=== PATIENT | female | born 1985 | race Caucasian/White ===

== ENCOUNTER 2017-06-27 09:20 | Emergency (ER) | payer OTHER ==
--- NOTE | 2017-06-27 09:50 | ED ---
Abdominal Pain HPI - General Chief Complaint: Abdominal Pain Stated Complaint: Rib/Chest Pain Time Seen by Provider: 06/27/17 09:34 Source: patient, RN notes reviewed Mode of arrival: ambulatory Limitations: no limitations - History of Present Illness Initial Comments: This a 32-year-old female presents emergency Department chief complaint right upper quadrant abdominal pain. Patient states she's had pain essentially for 2 years but states recently has worsened. She states she was at [facility] twice for evaluation states that they told her something wrong with her liver. She follow-up with her primary care physician who set her up with Dr. Rae. She states she does not know why she has been referred to a neurologist for liver issues. Patient states that she occasionally has nausea no vomiting no diarrhea no constipation no history of IV drug use no history of hepatitis. Patient states she wakes up morning feels extremity puncture her right lower ribs and right upper abdomen region. Patient states she is not sure she's ever had an ultrasound or not. - Related Data Home Medications Medication Instructions Recorded Confirmed ALPRAZolam [ALPRAZolam] 0.25 mg PO TID PRN 03/02/16 06/27/17 Previous Rx's Medication Instructions Recorded traMADol HCl [Ultram] 50 mg PO Q6H PRN #20 tab 06/27/17 Allergies Allergy/AdvReac Type Severity Reaction Status Date / Time No Known Allergies Allergy Verified 06/27/17 09:48 Review of Systems ROS Statement: Those systems with pertinent positive or pertinent negative responses have been documented in the HPI. ROS Other: All systems not noted in ROS Statement are negative. Past Medical History Past Medical History: No Reported History History of Any Multi-Drug Resistant Organisms: None Reported Past Surgical History: No Surgical Hx Reported Past Psychological History: Anxiety Smoking Status: Current every day smoker Past Alcohol Use History: Occasional Past Drug Use History: None Reported General Exam Limitations: no limitations General appearance: alert, in no apparent distress Head exam: Present: atraumatic, normocephalic, normal inspection Respiratory exam: Present: normal lung sounds bilaterally. Absent: respiratory distress, wheezes, rales, rhonchi, stridor Cardiovascular Exam: Present: regular rate, normal rhythm, normal heart sounds. Absent: systolic murmur, diastolic murmur, rubs, gallop, clicks GI/Abdominal exam: Present: soft, tenderness (Mild right upper quadrant tenderness), normal bowel sounds. Absent: distended, guarding, rebound, rigid Back exam: Absent: CVA tenderness (R), CVA tenderness (L) Skin exam: Present: warm, dry, intact, normal color. Absent: rash Course Vital Signs 06/27/17 09:30 Temperature 99.3 F Pulse Rate 88 Respiratory 18 Rate Blood Pressure 117/61 O2 Sat by Pulse 98 Oximetry Medical Decision Making - Medical Decision Making 32-year-old female presented emergency from for reported abdominal pain. Patient denies ongoing issues. Patient has mild thickening of the wall is no inflammatory changes. Recommend to have a HIDA scan outpatient patient will be referred to on-call surgeon Dr. Sepulveda. Return parameters were discussed. - Lab Data Result diagrams: 06/27/17 10:30 06/27/17 10:30 Lab Results 06/27/17 06/27/17 06/27/17 Range/Units 10:15 10:15 10:15 WBC (3.8-10.6) k/uL RBC (3.80-5.40) m/uL Hgb (11.4-16.0) gm/dL Hct (34.0-46.0) % MCV (80.0-100.0) fL MCH (25.0-35.0) pg MCHC (31.0-37.0) g/dL RDW (11.5-15.5) % Plt Count (150-450) k/uL Neutrophils % % Lymphocytes % % Monocytes % % Eosinophils % % Basophils % % Neutrophils # (1.3-7.7) k/uL Lymphocytes # (1.0-4.8) k/uL Monocytes # (0-1.0) k/uL Eosinophils # (0-0.7) k/uL Basophils # (0-0.2) k/uL PT (9.0-12.0) sec INR (<1.2) APTT (22.0-30.0) sec Sodium (137-145) mmol/L Potassium (3.5-5.1) mmol/L Chloride (98-107) mmol/L Carbon Dioxide (22-30) mmol/L Anion Gap mmol/L BUN (7-17) mg/dL Creatinine (0.52-1.04) mg/dL Est GFR (MDRD) Af Amer (>60 ml/min/1.73 sqM) Est GFR (MDRD) Non-Af (>60 ml/min/1.73 sqM) Glucose (74-99) mg/dL Calcium (8.4-10.2) mg/dL Total Bilirubin (0.2-1.3) mg/dL AST (14-36) U/L ALT (9-52) U/L Alkaline Phosphatase (38-126) U/L Total Protein (6.3-8.2) g/dL Albumin (3.5-5.0) g/dL Amylase (30-110) U/L Lipase (23-300) U/L Urine Color Yellow Urine Appearance Clear (Clear) Urine pH 6.5 (5.0-8.0) Ur Specific Boyce 1.015 (1.001-1.035) Urine Protein Negative (Negative) Urine Glucose (UA) Negative (Negative) Urine Ketones Negative (Negative) Urine Blood Negative (Negative) Urine Nitrite Negative (Negative) Urine Bilirubin Negative (Negative) Urine Urobilinogen <2.0 (<2.0) mg/dL Ur Leukocyte Esterase Negative (Negative) Urine HCG, Qual Not Detected (Not Detectd) Urine Opiates Screen Not Detected (NotDetected) Ur Oxycodone Screen Not Detected (NotDetected) Urine Methadone Screen Not Detected (NotDetected) Ur Propoxyphene Screen Not Detected (NotDetected) Ur Barbiturates Screen Not Detected (NotDetected) U Tricyclic Antidepress Not Detected (NotDetected) Ur Phencyclidine Scrn Not Detected (NotDetected) Ur Amphetamines Screen Not Detected (NotDetected) U Methamphetamines Scrn Not Detected (NotDetected) U Benzodiazepines Scrn Detected H (NotDetected) Urine Cocaine Screen Not Detected (NotDetected) U Marijuana (THC) Screen Not Detected (NotDetected) Heterophile Antibody (Negative) 06/27/17 06/27/17 06/27/17 Range/Units 10:30 10:30 10:30 WBC 3.9 (3.8-10.6) k/uL RBC 4.04 (3.80-5.40) m/uL Hgb 11.5 (11.4-16.0) gm/dL Hct 35.8 (34.0-46.0) % MCV 88.8 (80.0-100.0) fL MCH 28.6 (25.0-35.0) pg MCHC 32.2 (31.0-37.0) g/dL RDW 15.9 H (11.5-15.5) % Plt Count 144 L (150-450) k/uL Neutrophils % 56 % Lymphocytes % 30 % Monocytes % 10 % Eosinophils % 2 % Basophils % 1 % Neutrophils # 2.2 (1.3-7.7) k/uL Lymphocytes # 1.2 (1.0-4.8) k/uL Monocytes # 0.4 (0-1.0) k/uL Eosinophils # 0.1 (0-0.7) k/uL Basophils # 0.0 (0-0.2) k/uL PT (9.0-12.0) sec INR (<1.2) APTT (22.0-30.0) sec Sodium 140 (137-145) mmol/L Potassium 4.2 (3.5-5.1) mmol/L Chloride 107 (98-107) mmol/L Carbon Dioxide 25 (22-30) mmol/L Anion Gap 8 mmol/L BUN 11 (7-17) mg/dL Creatinine 0.64 (0.52-1.04) mg/dL Est GFR (MDRD) Af Amer >60 (>60 ml/min/1.73 sqM) Est GFR (MDRD) Non-Af >60 (>60 ml/min/1.73 sqM) Glucose 97 (74-99) mg/dL Calcium 9.4 (8.4-10.2) mg/dL Total Bilirubin 0.4 (0.2-1.3) mg/dL AST 101 H (14-36) U/L ALT 132 H (9-52) U/L Alkaline Phosphatase 49 (38-126) U/L Total Protein 7.1 (6.3-8.2) g/dL Albumin 4.1 (3.5-5.0) g/dL Amylase 110 (30-110) U/L Lipase 157 (23-300) U/L Urine Color Urine Appearance (Clear) Urine pH (5.0-8.0) Ur Specific Boyce (1.001-1.035) Urine Protein (Negative) Urine Glucose (UA) (Negative) Urine Ketones (Negative) Urine Blood (Negative) Urine Nitrite (Negative) Urine Bilirubin (Negative) Urine Urobilinogen (<2.0) mg/dL Ur Leukocyte Esterase (Negative) Urine HCG, Qual (Not Detectd) Urine Opiates Screen (NotDetected) Ur Oxycodone Screen (NotDetected) Urine Methadone Screen (NotDetected) Ur Propoxyphene Screen (NotDetected) Ur Barbiturates Screen (NotDetected) U Tricyclic Antidepress (NotDetected) Ur Phencyclidine Scrn (NotDetected) Ur Amphetamines Screen (NotDetected) U Methamphetamines Scrn (NotDetected) U Benzodiazepines Scrn (NotDetected) Urine Cocaine Screen (NotDetected) U Marijuana (THC) Screen (NotDetected) Heterophile Antibody Negative (Negative) 06/27/17 Range/Units 10:30 WBC (3.8-10.6) k/uL RBC (3.80-5.40) m/uL Hgb (11.4-16.0) gm/dL Hct (34.0-46.0) % MCV (80.0-100.0) fL MCH (25.0-35.0) pg MCHC (31.0-37.0) g/dL RDW (11.5-15.5) % Plt Count (150-450) k/uL Neutrophils % % Lymphocytes % % Monocytes % % Eosinophils % % Basophils % % Neutrophils # (1.3-7.7) k/uL Lymphocytes # (1.0-4.8) k/uL Monocytes # (0-1.0) k/uL Eosinophils # (0-0.7) k/uL Basophils # (0-0.2) k/uL PT 10.6 (9.0-12.0) sec INR 1.1 (<1.2) APTT 24.9 (22.0-30.0) sec Sodium (137-145) mmol/L Potassium (3.5-5.1) mmol/L Chloride (98-107) mmol/L Carbon Dioxide (22-30) mmol/L Anion Gap mmol/L BUN (7-17) mg/dL Creatinine (0.52-1.04) mg/dL Est GFR (MDRD) Af Amer (>60 ml/min/1.73 sqM) Est GFR (MDRD) Non-Af (>60 ml/min/1.73 sqM) Glucose (74-99) mg/dL Calcium (8.4-10.2) mg/dL Total Bilirubin (0.2-1.3) mg/dL AST (14-36) U/L ALT (9-52) U/L Alkaline Phosphatase (38-126) U/L Total Protein (6.3-8.2) g/dL Albumin (3.5-5.0) g/dL Amylase (30-110) U/L Lipase (23-300) U/L Urine Color Urine Appearance (Clear) Urine pH (5.0-8.0) Ur Specific Boyce (1.001-1.035) Urine Protein (Negative) Urine Glucose (UA) (Negative) Urine Ketones (Negative) Urine Blood (Negative) Urine Nitrite (Negative) Urine Bilirubin (Negative) Urine Urobilinogen (<2.0) mg/dL Ur Leukocyte Esterase (Negative) Urine HCG, Qual (Not Detectd) Urine Opiates Screen (NotDetected) Ur Oxycodone Screen (NotDetected) Urine Methadone Screen (NotDetected) Ur Propoxyphene Screen (NotDetected) Ur Barbiturates Screen (NotDetected) U Tricyclic Antidepress (NotDetected) Ur Phencyclidine Scrn (NotDetected) Ur Amphetamines Screen (NotDetected) U Methamphetamines Scrn (NotDetected) U Benzodiazepines Scrn (NotDetected) Urine Cocaine Screen (NotDetected) U Marijuana (THC) Screen (NotDetected) Heterophile Antibody (Negative) Disposition Clinical Impression: Transaminitis, Right upper quadrant abdominal pain Disposition: HOME SELF-CARE Condition: Stable Instructions: Abdominal Pain (ED) Additional Instructions: Please return to the Emergency Department if symptoms worsen or any other concerns. Prescriptions: traMADol HCl [Ultram] 50 mg PO Q6H PRN #20 tab PRN Reason: Pain Referrals: Lonnie Fox Jr, DO [Primary Care Provider] - 1-2 days Adriana Sepulveda MD [STAFF PHYSICIAN] - 1-2 days Time of Disposition: 11:37
[2017-06-27 10:43] LABS: Basophils % (A) 1 %; CH 29.2; CHCM 33.1; Eosinophils # (A) 0.1 k/uL (0-0.7); Eosinophils % (A) 2 %; HCT 35.8 % (34.0-46.0); HDW 2.81; HGB 11.5 gm/dL (11.4-16.0); Luc # (Auto) 0.09; Luc % (Auto) 2; Lymphocytes # (A) 1.2 k/uL (1.0-4.8); Lymphocytes % (A) 30 %; MCH 28.6 pg (25.0-35.0); MCHC 32.2 g/dL (31.0-37.0); MCV 88.8 fL (80.0-100.0); Mean Platelet Volume 7.4; Monocytes # (A) 0.4 k/uL (0-1.0); Monocytes % (A) 10 %; Neutrophils # (A) 2.2 k/uL (1.3-7.7); Neutrophils % (A) 56 %; RBC 4.04 m/uL (3.80-5.40); RDW 15.9 % (11.5-15.5); WBC 3.9 k/uL (3.8-10.6); WBC (Perox) 4.01
[2017-06-27 10:46] LABS: Appearance,Urine Clear (Clear); Bilirubin,Urine Negative (Negative); Glucose,Urine (UA) Negative (Negative); Ketones,Urine Negative (Negative); Leukocyte Esterase,Urine Negative (Negative); Nitrite,Urine Negative (Negative); PH, Urine 6.5 (5.0-8.0); Protein,Urine Negative (Negative); Specific Gravity,Urine 1.015 (1.001-1.035); UA Billing (MACRO vs. MICRO) CHEM; Urobilinogen,Urine <2.0 mg/dL (<2.0)
[2017-06-27 10:55] LABS: INR 1.1 (<1.2); Partial Thromboplastin Time 24.9 sec (22.0-30.0); Prothrombin Time 10.6 sec (9.0-12.0)
[2017-06-27 11:06] LABS: ALT 132 U/L (9-52); AST 101 U/L (14-36); Alkaline Phosphatase 49 U/L (38-126); Amylase 110 U/L (30-110); Anion Gap 8 mmol/L; Blood Urea Nitrogen 11 mg/dL (7-17); Calcium 9.4 mg/dL (8.4-10.2); Carbon Dioxide 25 mmol/L (22-30); Chloride 107 mmol/L (98-107); Glucose 97 mg/dL (74-99); Non-African American GFR(MDRD) >60 (>60 ml/min/1.73 sqM); Potassium 4.2 mmol/L (3.5-5.1); Sodium 140 mmol/L (137-145); Total Bilirubin 0.4 mg/dL (0.2-1.3); Total Protein 7.1 g/dL (6.3-8.2)
--- NOTE | 2017-06-27 11:30 | US ---
EXAMINATION TYPE: US abdomen limited DATE OF EXAM: 06/27/2017 COMPARISON: NONE CLINICAL HISTORY: Pain - RUQ. EXAM MEASUREMENTS: Liver Length: 15.7 cm Gallbladder Wall: 0.4 cm CBD: 0.5 cm Right Kidney: 10.3 x 4.7 x 4.5 cm Pancreas: Obscured by bowel gas Liver: portions visualized wnl, somewhat limited due to patients inability to take in a deep breath Gallbladder: thickened wall Evidence for sonographic Lovett's sign: patient very tender at this area CBD: wnl Right Kidney: Inferior pole obscured by overlying bowel gas IMPRESSION: 1. Limited exam demonstrates mild gallbladder wall thickening with no definite gallstones. Consider f ollow-up HIDA scan to assess for gallbladder function and acalculus cholecystitis.
[2017-06-27] MEDS ORDERED: KETOROLAC 30 MG/ML 1 ML VIAL IVP STA (11:36)
[2017-06-27 11:48] VITALS: BP 103/57; PULSE 67; RESP 16; TEMP 97.2
== END 2017-06-27 11:56 | disposition home or self-care (01) ==
LOC: EC 09:20
DX: R74.0 Nonspecific elevation of levels of transaminase and lactic acid dehydrogenase [LDH] (principal); R10.11 Right upper quadrant pain; R11.0 Nausea; F17.200 Nicotine dependence, unspecified, uncomplicated
CPT/HCPCS: 99284 ×3; 96374 ×2; 36415; 93005; 80053; 80074; 82150; 83690; 85025; 85610; 85730; 86308; 81003; 81025; 80306; 76705; J1885

== ENCOUNTER 2017-06-27 15:57 | Emergency (ER) | payer OTHER ==
[2017-06-27 16:03] VITALS: TEMP 97.4
[2017-06-27] MEDS ORDERED: HYDROcodone/APAP 5-325MG 1 EACH TAB PO STA (16:28)
--- NOTE | 2017-06-27 16:33 | ED ---
General Adult HPI - General Chief complaint: Chest Pain Stated complaint: CHEST PAIN FOLLOWING MEDICATION Time Seen by Provider: 06/27/17 16:22 Source: patient, RN notes reviewed Mode of arrival: wheelchair Limitations: no limitations - History of Present Illness Initial comments: This a 32-year-old female presents emergency Department chief complaint of medication reaction. Patient was seen here earlier today diagnosed with gallbladder. Ultrasound showed thickening of the gallbladder wall. Patient was given mobic she states that she cannot take tramadol were, according. Patient states that she cannot scheduled appointment with his surgeon as directed. Patient states she talked with primary felt that she still need to see a neurologist. Patient denies any nausea vomiting diarrhea constipation. She states that medication upset her stomach and she's having worsening of her symptoms. She denies any anterior upper chest pain. She states in her abdomen. - Related Data Home Medications Medication Instructions Recorded Confirmed ALPRAZolam [ALPRAZolam] 0.25 mg PO TID PRN 03/02/16 06/27/17 Previous Rx's Medication Instructions Recorded Hydrocodone/Acetaminophen [[place] 1 tab PO Q6HR PRN #15 tab 06/27/17 5-325] Meloxicam [Mobic] 7.5 mg PO DAILY #14 tab 06/27/17 Omeprazole 40 mg PO DAILY #14 capsule. 06/27/17 Ondansetron Odt [Zofran Odt] 4 mg PO Q8HR PRN #10 tab 06/27/17 traMADol HCl [Ultram] 50 mg PO Q6H PRN #20 tab 06/27/17 Allergies Allergy/AdvReac Type Severity Reaction Status Date / Time No Known Allergies Allergy Verified 06/27/17 15:59 Review of Systems ROS Statement: Those systems with pertinent positive or pertinent negative responses have been documented in the HPI. ROS Other: All systems not noted in ROS Statement are negative. Past Medical History Past Medical History: No Reported History History of Any Multi-Drug Resistant Organisms: None Reported Past Surgical History: Section Past Psychological History: Anxiety Smoking Status: Former smoker Past Alcohol Use History: Occasional Past Drug Use History: None Reported General Exam Limitations: no limitations General appearance: alert, in no apparent distress Neck exam: Present: normal inspection, full ROM. Absent: tenderness, meningismus, lymphadenopathy Respiratory exam: Present: normal lung sounds bilaterally. Absent: respiratory distress, wheezes, rales, rhonchi, stridor Cardiovascular Exam: Present: regular rate, normal rhythm, normal heart sounds. Absent: systolic murmur, diastolic murmur, rubs, gallop, clicks GI/Abdominal exam: Present: soft, tenderness (Tenderness in epigastric and right upper quadrant), normal bowel sounds. Absent: distended, guarding, rebound, rigid Back exam: Absent: CVA tenderness (R), CVA tenderness (L) Psychiatric exam: Present: normal affect, normal mood Course Vital Signs 06/27/17 16:00 Temperature 97.4 F L Pulse Rate 70 Respiratory 18 Rate Blood Pressure 104/59 O2 Sat by Pulse 99 Oximetry EKG Findings - EKG Comments: EKG Findings:: EKG performed at 16:09 normal sinus rhythm with rate 74 WA 144 QRS 84 QT/QTc 412/457 Medical Decision Making - Medical Decision Making 32-year-old female presented for medication reaction. Patient felt worse after taking molelike. Patient will be advised to discontinue medication, we given the medication in follow-up with surgery. Disposition Clinical Impression: Right upper quadrant abdominal pain, Medication reaction Disposition: HOME SELF-CARE Condition: Stable Instructions: Abdominal Pain (ED) Additional Instructions: Please return to the Emergency Department if symptoms worsen or any other concerns. Prescriptions: Hydrocodone/Acetaminophen [[place] 5-325] 1 tab PO Q6HR PRN #15 tab PRN Reason: Pain Omeprazole 40 mg PO DAILY #14 capsule. Ondansetron Odt [Zofran Odt] 4 mg PO Q8HR PRN #10 tab PRN Reason: Nausea Referrals: Lonnie Fox Jr, [Primary Care Provider] - 1-2 days Time of Disposition: 16:33
[2017-06-27 16:55] VITALS: BP 108/57; PULSE 83; RESP 16
== END 2017-06-27 16:55 | disposition home or self-care (01) ==
LOC: EC 15:57
DX: R10.11 Right upper quadrant pain (principal); T39.395A Adverse effect of other nonsteroidal anti-inflammatory drugs [NSAID], initial encounter; Z87.891 Personal history of nicotine dependence
CPT/HCPCS: 93005; 99284

== ENCOUNTER → 2017-09-19 | Outpatient (CLI) | payer OTHER ==
--- NOTE | 2017-09-19 14:03 | MR ---
EXAMINATION TYPE: [facility] DATE OF EXAM: 09/19/2017 COMPARISON: NONE HISTORY: Headache / Cervicalgia TECHNIQUE: Multiplanar, multisequence images of the brain and brainstem is performed without and with IV contras t, utilizing 7 mL intravenous Gadavist . FINDINGS: Brain: Diffusion weighted images demonstrate no evidence of a recent infarct or other diffusion abnor mality. There is no extra-axial fluid collection or significant white matter signal abnormality. Th e ventricular system and cisternal spaces are normal in size and appearance. The brain volume is age appropriate. Midline structures demonstrate normal morphology. The craniocervical junction appears within normal limits. Incidental note is made of a nonenhancing 8 mm pineal gland cyst. Post contrast images demon strate no abnormal enhancement. The dural venous sinuses appear patent. The visualized sinuses are cl ear and the globes are intact. Cervical spine: There is a slight reversal usual cervical lordosis from C2 through C6. Vertebral bodi es maintain normal alignment and vertebral body height. Bone marrow signal is within normal limits. V isualized posterior fossa is unremarkable. Cervical cord signal is also within normal limits. Multile sheri disc desiccation is present. C2-C3: No significant disc pathology, neural foraminal stenosis or spinal canal stenosis. C3-C4: There is a small left paracentral disc herniation minimally impressing upon the ventral subara chnoid space and extending into the lateral recess creating mild spinal canal stenosis left laterally . Neural foramen are patent. C4-C5: There is a left foraminal disc herniation mildly narrowing the left neural foramen. Spinal can al and right neuroforamen are patent. C5-C6: There is a central subligamentous small disc herniation mildly narrowing the spinal canal. Simon ral foramen are patent. C6-C7: No significant disc pathology, neural foraminal stenosis or spinal canal stenosis. C7-T1: No significant disc pathology, neural foraminal stenosis or spinal canal stenosis. IMPRESSION: 1. Small left paracentral disc herniation at C3-C4 creating mild spinal canal stenosis left laterally . Neural foramen are patent. 2. Small left foraminal disc herniation mildly narrowing the left neuroforamen at C4-C5. 3. Central subligamentous small disc herniation mildly narrowing the spinal canal at C5-C6. Neural fo ramen are patent. 4. No acute intracranial process. No abnormal intracranial enhancement. 8mm pineal gland cyst is inci dentally noted.
== END | disposition home or self-care (01) ==
LOC: RADMRIMAIN 10:31
PROVIDERS: ATTEND Psychiatry & Neurology Neurology
DX: M48.02 Spinal stenosis, cervical region (principal); M50.21 Other cervical disc displacement, high cervical region; R51 Headache
CPT/HCPCS: 70553; 72141; A9581

== ENCOUNTER 2017-10-10 17:23 | Emergency (ER) | payer OTHER ==
[2017-10-10 17:29] VITALS: RESP 18; TEMP 98.9
[2017-10-10] MEDS ORDERED: SODIUM CHLORIDE 0.9% 1,000 ML IV STA (17:56)
[2017-10-10 18:26] LABS: Basophils % (A) 0 %; Eosinophils % (A) 1 %; HCT 34.6 % (34.0-46.0); HGB 11.6 gm/dL (11.4-16.0); Lymphocytes # (A) 1.3 k/uL (1.0-4.8); Lymphocytes % (A) 37 %; MCH 27.9 pg (25.0-35.0); MCHC 33.5 g/dL (31.0-37.0); MCV 83.3 fL (80.0-100.0); Mean Platelet Volume 8.3; Monocytes # (A) 0.2 k/uL (0-1.0); Monocytes % (A) 7 %; Neutrophils # (A) 1.9 k/uL (1.3-7.7); Neutrophils % (A) 52 %; Platelet Count 162 k/uL (150-450); RBC 4.16 m/uL (3.80-5.40); RDW 14.9 % (11.5-15.5); WBC 3.6 k/uL (3.8-10.6)
[2017-10-10 18:28] LABS: Appearance,Urine Clear (Clear); Bilirubin,Urine Negative (Negative); Blood,Urine Negative (Negative); Color,Urine Light Yellow; Glucose,Urine (UA) Negative (Negative); Ketones,Urine Negative (Negative); Leukocyte Esterase,Urine Negative (Negative); Nitrite,Urine Negative (Negative); PH, Urine 7.5 (5.0-8.0); Protein,Urine Negative (Negative); Specific Gravity,Urine 1.005 (1.001-1.035); Urobilinogen,Urine <2.0 mg/dL (<2.0)
[2017-10-10 18:47] LABS: ALT 17 U/L (9-52); AST 20 U/L (14-36); Alkaline Phosphatase 43 U/L (38-126); Anion Gap 9 mmol/L; Blood Urea Nitrogen 10 mg/dL (7-17); Calcium 9.4 mg/dL (8.4-10.2); Carbon Dioxide 26 mmol/L (22-30); Chloride 108 mmol/L (98-107); Glucose 110 mg/dL (74-99); Sodium 143 mmol/L (137-145); Total Bilirubin 0.3 mg/dL (0.2-1.3); Total Protein 6.8 g/dL (6.3-8.2)
--- NOTE | 2017-10-10 19:02 | XR ---
EXAMINATION TYPE: XR chest 2V DATE OF EXAM: 10/10/2017 COMPARISON: 07/05/2017 HISTORY: Weakness TECHNIQUE: Frontal and lateral views of the chest are obtained. FINDINGS: Heart and mediastinum are normal. Lungs are clear. Diaphragm is normal. Bony thorax is int act. IMPRESSION: Normal chest. No change.
[2017-10-10] MEDS ORDERED: POTASSIUM CHLORIDE ER 10 MEQ TAB.ER.PRT PO STA (19:14)
--- NOTE | 2017-10-10 19:31 | ED ---
General Adult HPI - General Chief complaint: Shortness of Breath Stated complaint: Weak/shaking Time Seen by Provider: 10/10/17 17:44 Source: patient Mode of arrival: ambulatory Limitations: no limitations - History of Present Illness Initial comments: 32-year-old female presents to the emergency department for chief complaint of shortness of shakiness. Patient states she was given an antibiotic for a cough 2 weeks ago and has felt shaky since then. Patient did have a cough at that time but states her cough is getting better. She states she still has some shortness of breath. Patient does appear anxious in the room but denies generalized anxiety. Patient denies nausea, vomiting, or diarrhea. Patient denies chest pain. Patient states she has felt weak but has not lost consciousness or fallen. Patient has been able to go to work the past 2 weeks. Patient has an appointment with a primary care physician in 2 days, Dr. Fox. - Related Data Home Medications Medication Instructions Recorded Confirmed ALPRAZolam [ALPRAZolam] 0.25 mg PO TID PRN 03/02/16 10/10/17 Dextroamphetamine/Amphetamine 30 mg PO DAILY 10/10/17 10/10/17 [Adderall] Previous Rx's Medication Instructions Recorded Potassium Chloride ER [K-Dur 10] 10 meq PO DAILY #5 tab 10/10/17 Allergies Allergy/AdvReac Type Severity Reaction Status Date / Time No Known Allergies Allergy Verified 10/10/17 17:53 Review of Systems ROS Statement: Those systems with pertinent positive or pertinent negative responses have been documented in the HPI. ROS Other: All systems not noted in ROS Statement are negative. Past Medical History Past Medical History: No Reported History History of Any Multi-Drug Resistant Organisms: None Reported Past Surgical History: Section Past Psychological History: Anxiety Smoking Status: Former smoker Past Alcohol Use History: Occasional Past Drug Use History: None Reported General Exam Limitations: no limitations Head exam: Present: atraumatic, normocephalic, normal inspection Eye exam: Present: normal appearance, PERRL, EOMI. Absent: scleral icterus, conjunctival injection, periorbital swelling ENT exam: Present: normal exam, mucous membranes moist Neck exam: Present: normal inspection. Absent: tenderness, meningismus, lymphadenopathy Respiratory exam: Present: normal lung sounds bilaterally. Absent: respiratory distress, wheezes, rales, rhonchi, stridor Cardiovascular Exam: Present: regular rate, normal rhythm, normal heart sounds. Absent: systolic murmur, diastolic murmur, rubs, gallop, clicks GI/Abdominal exam: Present: soft, normal bowel sounds. Absent: distended, tenderness, guarding, rebound, rigid Extremities exam: Present: normal inspection, full ROM, normal capillary refill. Absent: tenderness, pedal edema, joint swelling, calf tenderness Neurological exam: Present: alert, oriented X3, CN II-XII intact Psychiatric exam: Present: anxious Course Vital Signs 10/10/17 10/10/17 17:26 17:29 Temperature 98.9 F Pulse Rate 73 85 Respiratory 18 18 Rate Blood Pressure 108/71 119/67 O2 Sat by Pulse 100 96 Oximetry Medical Decision Making - Medical Decision Making 32-year-old female presents to the emergency department for shakiness. Patient is on antibiotic for a cough which is improving. Patient denies any congestion. Patient states she is also weak but has not fallen or lost consciousness. Patient has been able to maintain going to work for the past 2 weeks without problem. Patient denies any urinary symptoms, nausea, vomiting, abdominal pain, or chest pain. Patient was given a liter of IV fluids. I ordered an hCG and patient is negative for . Patient's CBC and CMP came back within normal limits except for potassium which was 3.0. She was treated with 20 of KDur and will continue with 10 KDur until she sees her primary care provider in 2 days. Patient does have feelings of shortness of breath. She is satting at 96-100% on room air. Chest x-ray shows no acute abnormalities. Patient will continue taking the Kdur until following up with primary care provider in 2 days at her scheduled appointment. If she notices worsening of shortness of breath or loses consciousness patient will return to the emergency department. - Lab Data Result diagrams: 10/10/17 18:10 10/10/17 18:10 Lab Results 10/10/17 10/10/17 10/10/17 Range/Units 18:10 18:10 18:10 WBC 3.6 L (3.8-10.6) k/uL RBC 4.16 (3.80-5.40) m/uL Hgb 11.6 (11.4-16.0) gm/dL Hct 34.6 (34.0-46.0) % MCV 83.3 (80.0-100.0) fL MCH 27.9 (25.0-35.0) pg MCHC 33.5 (31.0-37.0) g/dL RDW 14.9 (11.5-15.5) % Plt Count 162 (150-450) k/uL Neutrophils % 52 % Lymphocytes % 37 % Monocytes % 7 % Eosinophils % 1 % Basophils % 0 % Neutrophils # 1.9 (1.3-7.7) k/uL Lymphocytes # 1.3 (1.0-4.8) k/uL Monocytes # 0.2 (0-1.0) k/uL Eosinophils # 0.0 (0-0.7) k/uL Basophils # 0.0 (0-0.2) k/uL Sodium 143 (137-145) mmol/L Potassium 3.0 L* (3.5-5.1) mmol/L Chloride 108 H (98-107) mmol/L Carbon Dioxide 26 (22-30) mmol/L Anion Gap 9 mmol/L BUN 10 (7-17) mg/dL Creatinine 0.50 L (0.52-1.04) mg/dL Est GFR (CKD-EPI)AfAm >90 (>60 ml/min/1.73 sqM) Est GFR (CKD-EPI)NonAf >90 (>60 ml/min/1.73 sqM) Glucose 110 H (74-99) mg/dL Calcium 9.4 (8.4-10.2) mg/dL Total Bilirubin 0.3 (0.2-1.3) mg/dL AST 20 (14-36) U/L ALT 17 (9-52) U/L Alkaline Phosphatase 43 (38-126) U/L Total Protein 6.8 (6.3-8.2) g/dL Albumin 4.0 (3.5-5.0) g/dL Urine Color Light Yellow Urine Appearance Clear (Clear) Urine pH 7.5 (5.0-8.0) Ur Specific [place] 1.005 (1.001-1.035) Urine Protein Negative (Negative) Urine Glucose (UA) Negative (Negative) Urine Ketones Negative (Negative) Urine Blood Negative (Negative) Urine Nitrite Negative (Negative) Urine Bilirubin Negative (Negative) Urine Urobilinogen <2.0 (<2.0) mg/dL Ur Leukocyte Esterase Negative (Negative) Urine HCG, Qual (Not Detectd) 10/10/17 Range/Units 18:10 WBC (3.8-10.6) k/uL RBC (3.80-5.40) m/uL Hgb (11.4-16.0) gm/dL Hct (34.0-46.0) % MCV (80.0-100.0) fL MCH (25.0-35.0) pg MCHC (31.0-37.0) g/dL RDW (11.5-15.5) % Plt Count (150-450) k/uL Neutrophils % % Lymphocytes % % Monocytes % % Eosinophils % % Basophils % % Neutrophils # (1.3-7.7) k/uL Lymphocytes # (1.0-4.8) k/uL Monocytes # (0-1.0) k/uL Eosinophils # (0-0.7) k/uL Basophils # (0-0.2) k/uL Sodium (137-145) mmol/L Potassium (3.5-5.1) mmol/L Chloride (98-107) mmol/L Carbon Dioxide (22-30) mmol/L Anion Gap mmol/L BUN (7-17) mg/dL Creatinine (0.52-1.04) mg/dL Est GFR (CKD-EPI)AfAm (>60 ml/min/1.73 sqM) Est GFR (CKD-EPI)NonAf (>60 ml/min/1.73 sqM) Glucose (74-99) mg/dL Calcium (8.4-10.2) mg/dL Total Bilirubin (0.2-1.3) mg/dL AST (14-36) U/L ALT (9-52) U/L Alkaline Phosphatase (38-126) U/L Total Protein (6.3-8.2) g/dL Albumin (3.5-5.0) g/dL Urine Color Urine Appearance (Clear) Urine pH (5.0-8.0) Ur Specific [place] (1.001-1.035) Urine Protein (Negative) Urine Glucose (UA) (Negative) Urine Ketones (Negative) Urine Blood (Negative) Urine Nitrite (Negative) Urine Bilirubin (Negative) Urine Urobilinogen (<2.0) mg/dL Ur Leukocyte Esterase (Negative) Urine HCG, Qual Not Detected (Not Detectd) Disposition Clinical Impression: Weakness Disposition: HOME SELF-CARE Condition: Poor Instructions: Weakness (ED) Additional Instructions: Please return to the emergency department if you notice worsening shortness of breath, lose consciousness, or notice worsening of other symptoms. Otherwise please follow-up with your primary care provider at the scheduled appointment in 2 days. Continue taking Kdur until he can follow up with Dr. Fox. Prescriptions: Potassium Chloride ER [K-Dur 10] 10 meq PO DAILY #5 tab Referrals: Lonnie Fox Jr, [Primary Care Provider] - 1-2 days Time of Disposition: 19:31
[2017-10-10 19:43] VITALS: BP 101/54; PULSE 78
== END 2017-10-10 19:47 | disposition home or self-care (01) ==
LOC: EC 17:23
DX: R53.1 Weakness (principal); R06.02 Shortness of breath; R05 Cough; F41.9 Anxiety disorder, unspecified; Z87.891 Personal history of nicotine dependence; Z79.899 Other long term (current) drug therapy
CPT/HCPCS: 36415; 71046; 80053; 81003; 81025; 85025; 96360; 99285